=== PATIENT | male | born 1940 | race Caucasian/White ===

== ENCOUNTER 2016-07-09 15:44 | Emergency (ER) | payer SELFPAY ==
[~2016-07-09] VITALS: Ht 152.4 cm; Wt 65.0 kg
[2016-07-09] MEDS ORDERED: SODIUM CHLORIDE FLUSH 10ML SYR IVF ONE (16:00)
[2016-07-09] MEDS ORDERED: ASPIRIN 81 MG TABLET CHEW PO ONE (16:00)
[2016-07-09 16:44] LABS: HEMOGLOBIN 8.5 g/dL (13.7-18.0)
[2016-07-09] MEDS ORDERED: LEVO25TA4 PO (16:44)
[2016-07-09] MEDS ORDERED: METO100T3 PO (16:44)
[2016-07-09] MEDS ORDERED: NITR0.4T8 SL (16:44)
[2016-07-09] MEDS ORDERED: CLOP75TA22 PO (16:44)
[2016-07-09] MEDS ORDERED: ALPR-475 PO (16:44)
[2016-07-09] MEDS ORDERED: ATOR40TA78 PO (16:44)
[2016-07-09] MEDS ORDERED: ASPI-496 PO (16:44)
[2016-07-09 16:55] LABS: BLOOD UREA NITROGEN 22 mg/dL (7-18)
[2016-07-09] MEDS ORDERED: ALBUTEROL SULFATE 2.5 MG/3 ML NPPB ONE (17:00)
[2016-07-09 17:01] LABS: IS PT STATUS REG ER OR PRE ER? YES
[2016-07-09] MEDS ORDERED: ALBUTEROL SULFATE 2.5 MG/3 ML ONE (17:13)
[2016-07-09 18:10] VITALS: BP 116/54
== END 2016-07-09 18:17 | disposition home or self-care (01) ==
LOC: ED 18:00
DX: R53.1 Weakness (principal); R42 Dizziness and giddiness; Z87.891 Personal history of nicotine dependence
CPT/HCPCS: 36415; 70450; 80048; 82040; 83880; 84484; 85025; 93005; 94640; 99285; J7613

== ENCOUNTER 2017-02-17 17:29 | Inpatient (IN) | payer MEDICAID, MEDICARE, OTHER ==
[~2017-02-17] VITALS: Ht 165.1 cm; Wt 57.3 kg
[~2017-02-17 17:29] MED LIST: ALPR-475 PO; ASPI-496 PO; ATOR40TA78 PO; CLOP75TA52 PO; LEVO25TA4 PO; METO100T3 PO; NITR0.4T28 SL
[2017-02-17] MEDS ORDERED: FURO-93 PO (17:52)
[2017-02-17] MEDS ORDERED: CARV3.122 PO (17:52)
[2017-02-17] MEDS ORDERED: SODIUM CHLORIDE FLUSH 10ML SYR IVF ONE (18:00)
[2017-02-17] MEDS ORDERED: FUROSEMIDE 40 MG/4 ML IVPush ONE (18:00)
[2017-02-17] MEDS ORDERED: NITROGLYCERIN OINT 2%, 1GM TP ONE ×2 (18:00→18:02)
[2017-02-17] MEDS ORDERED: FUROSEMIDE 40 MG/4 ML ONE ×2 (18:02→20:13)
[2017-02-17 18:17] LABS: ASPARTATE AMINO TRANSFERASE 24 U/L (15-37); BLOOD UREA NITROGEN 12 mg/dL (7-18)
[2017-02-17 18:22] LABS: IS PT STATUS REG ER OR PRE ER? YES
[2017-02-17 18:41] LABS: HEMOGLOBIN 9.7 g/dL (13.7-18.0); WHITE BLOOD COUNT 6.2 x10^3/uL (3.4-10)
[2017-02-17 19:47] LABS: ANISOCYTOSIS 3+; MICROCYTOSIS 2+
[2017-02-17 19:48] LABS: HYPOCHROMIA 1+; POLYCHROMASIA 1+
[2017-02-17 19:49] LABS: OVALOCYTES 1+
[2017-02-17 19:51] LABS: ECHINOCYTES 1+
[2017-02-17] MEDS ORDERED: ONDANSETRON 2MG/ML, 2ML IVPush PRN (20:00)
[2017-02-17] MEDS ORDERED: METOPROLOL 1 MG/ML, 5ML IVPush ONE (20:00)
[2017-02-17] MEDS ORDERED: hydrALAzine 20 MG/ML, 1ML IVPush PRN (20:00)
[2017-02-17] MEDS ORDERED: morphine SULFATE 10 MG/ML, 1ML IVPush PRN (20:00)
[2017-02-17] MEDS ORDERED: FUROSEMIDE 40 MG/4 ML IV ONE (20:00)
[2017-02-17] MEDS ORDERED: METOPROLOL 1 MG/ML, 5ML ONE (20:13)
[2017-02-17 21:14] VITALS: BP 139/71
[2017-02-17] MEDS: ATORVASTATIN 40 MG TABLET PO SCH (22:11)
[2017-02-17] MEDS: METOPROLOL TARTRATE 100 MG TABLET PO SCH (22:12)
[2017-02-17] MEDS: ENOXAPARIN 40 MG/0.4 ML SQ SCH (22:14)
[2017-02-17] MEDS: SODIUM CHLORIDE FLUSH 10ML SYR IVF SCH (22:14)
[2017-02-17 23:35] LABS: IS PT STATUS REG ER OR PRE ER? NO
[2017-02-18 00:15] VITALS: BP 100/60
[2017-02-18 02:16] VITALS: BP 113/60
[2017-02-18 05:28] LABS: HEMOGLOBIN 9.1 g/dL (13.7-18.0); WHITE BLOOD COUNT 6.1 x10^3/uL (3.4-10)
[2017-02-18 05:48] LABS: ASPARTATE AMINO TRANSFERASE 19 U/L (15-37); BLOOD UREA NITROGEN 18 mg/dL (7-18)
[2017-02-18 06:33] LABS: ANISOCYTOSIS 2+; HYPOCHROMIA 1+; MICROCYTOSIS 2+; OVALOCYTES 1+; POLYCHROMASIA 1+; TARGET CELLS 1+
[2017-02-18 06:37] VITALS: BP 130/74
[2017-02-18] MEDS ORDERED: LEVOTHYROXINE 25 MCG TABLET PO SCH (09:00)
[2017-02-18] MEDS: CLOPIDOGREL 75 MG TABLET PO SCH (09:00)
[2017-02-18] MEDS: SODIUM CHLORIDE FLUSH 10ML SYR IVF SCH ×2 (09:09→21:15)
[2017-02-18] MEDS: ASPIRIN 81 MG TABLET EC PO SCH (09:09)
[2017-02-18] MEDS: METOPROLOL TARTRATE 100 MG TABLET PO SCH ×2 (09:09→21:14)
[2017-02-18] MEDS ORDERED: FUROSEMIDE 40 MG/4 ML IV ONE (11:30)
[2017-02-18] MEDS ORDERED: POTASSIUM CHLORIDE 20 MEQ TAB.ER.PRT PO ONE (11:30)
[2017-02-18 12:55] VITALS: BP 118/67
[2017-02-18 20:32] VITALS: BP 138/76
[2017-02-18] MEDS: ATORVASTATIN 40 MG TABLET PO SCH (21:14)
[2017-02-18] MEDS: ENOXAPARIN 40 MG/0.4 ML SQ SCH (21:15)
[2017-02-19 02:44] VITALS: BP 125/71
[2017-02-19] MEDS ORDERED: LEVOTHYROXINE 50 MCG TABLET PO SCH (06:00)
[2017-02-19 06:25] LABS: BLOOD UREA NITROGEN 20 mg/dL (7-18)
[2017-02-19 07:15] VITALS: BP 142/70
[2017-02-19] MEDS ORDERED: FUROSEMIDE 20 MG TABLET PO SCH (08:00)
[2017-02-19] MEDS: SODIUM CHLORIDE FLUSH 10ML SYR IVF SCH (08:57)
[2017-02-19] MEDS: ASPIRIN 81 MG TABLET EC PO SCH (08:57)
[2017-02-19] MEDS: CLOPIDOGREL 75 MG TABLET PO SCH (08:58)
[2017-02-19] MEDS: METOPROLOL TARTRATE 100 MG TABLET PO SCH (08:58)
[2017-02-19] MEDS ORDERED: FERR325T18 PO (10:28)
[2017-02-19] MEDS ORDERED: LEVO50TA PO (10:28)
[2017-02-19] MEDS ORDERED: POTA10TA6 PO (10:28)
[2017-02-19] MEDS ORDERED: FURO20TA3 PO (10:28)
[2017-02-19] MEDS ORDERED: METO-99 PO (10:29)
[2017-02-19 12:21] VITALS: BP 110/64
== END 2017-02-19 15:40 | disposition home or self-care (01) | DRG 293 ==
LOC: ED 19:16 → SUATTDRO 19:20 → EDIP 19:47 → 4EST 20:47
PROVIDERS: ADMIT Internal Medicine; ATTEND Family Medicine
DX: I11.0 Hypertensive heart disease with heart failure (principal); I27.20 Pulmonary hypertension, unspecified; E03.9 Hypothyroidism, unspecified; I50.23 Acute on chronic systolic (congestive) heart failure; E78.5 Hyperlipidemia, unspecified; I25.10 Atherosclerotic heart disease of native coronary artery without angina pectoris; Z87.891 Personal history of nicotine dependence; Z91.14 Patient's other noncompliance with medication regimen; Z95.5 Presence of coronary angioplasty implant and graft; I08.0 Rheumatic disorders of both mitral and aortic valves
CPT/HCPCS: 36415; 71010; 80048; 80053; 80061; 81003; 83735; 83880; 84443; 84484; 85025; 93005; 93306; 96374; 96375; J1650; J1940

== ENCOUNTER 2017-06-04 14:55 | Emergency (ER) | payer MEDICARE, MEDICAID ==
[~2017-06-04] VITALS: Ht 165.1 cm; Wt 54.2 kg
[~2017-06-04 14:55] MED LIST changes: +CARV3.122 PO; +CIPR250T2 PO; +FERR325T18 PO; +FURO-93 PO; +FURO20TA3 PO; +LEVO50TA PO; +LISI5TAB7 PO; +METO-99 PO; -METO100T3 PO; +METO100T7 PO; +POTA10TA6 PO; +SPIR25TA PO
[2017-06-04 15:01] VITALS: BP 127/71
== END 2017-06-04 15:34 | disposition home or self-care (01) ==
LOC: ED 15:23
DX: Z76.0 Encounter for issue of repeat prescription (principal); E03.9 Hypothyroidism, unspecified; I50.9 Heart failure, unspecified; I11.0 Hypertensive heart disease with heart failure
CPT/HCPCS: 99283